=== PATIENT | male | born 1960 ===

== ENCOUNTER 2018-04-16 09:02 | Emergency (ER) | payer OTHER ==
[2018-04-16] MEDS ORDERED: NS 1,000 ML IV ONE (09:26)
--- NOTE | 2018-04-16 09:32 | EDPHY ---
H & P Stated Complaint: Bilat LQ pn x2mos. C/o constipation s bleeding. Time Seen by Provider: 04/16/18 09:20 HPI/ROS: CHIEF COMPLAINT: Lower abdominal pain x2 months HISTORY OF PRESENT ILLNESS: 57-year-old male with remote history of appendectomy, complaining of intermittent lower abdominal pain for the past 2 months worse in the past 3 days. He has to push his bowel movements out more significantly than previously. No melena or hematochezia. No pain with defecation. No nausea or vomiting. No back or flank pain. No trauma. No testicle pain. REVIEW OF SYSTEMS: 10 systems reviewed and negative with the exception of the elements mentioned in the history of present illness PAST MEDICAL & SURGICAL HISTORY: remote appendectomy history SOCIAL HISTORY: No drug use nonsmoker FAMILY HISTORY: Father secondary to history of colon cancer PHYSICAL EXAM (Prior to examination, patient consented to physical exam, hands were washed and my usual and customary physical exam procedures followed) 1) GENERAL: Well-developed, well-nourished, alert and oriented. Appears to be in no acute distress. Smiling 2) HEAD: Normocephalic, atraumatic 3) HEENT: Pupils equal, round, reactive to light bilaterally. Sclera anicteric. Nasopharynx, oropharynx, clear, no lesions. Moist mucous membranes. 4) NECK: Full range of motion, no meningeal signs. 5) LUNGS: Clear auscultation bilaterally, no wheezes, no rhonchi, no retractions. 6) HEART: Regular rate and rhythm, no murmur, no heave, no gallop. 7) ABDOMEN: No guarding, tender to palpation left lower quadrant , negative Christopher's, negative peritoneal sign, 8) MUSCULOSKELETAL: Moving all extremities, no focal areas of tenderness, no obvious trauma. No peripheral edema or discoloration. 9) BACK: No CVA tenderness 10) SKIN: No rash, no petechiae. 11) : Normal male external genitalia bilateral testicles nontender non high- riding, no mass, no inguinal mass or gross hernia. No scrotal abnormality. DIFFERENTIAL DIAGNOSIS: My differential diagnosis includes, but is not limited to, acute appendicitis, acute cholecystitis, bowel obstruction, acute pancreatitis, testicular torsion, gastritis and urinary tract infection. The patient understands that this diagnosis is provisional and can never be 100% accurate. This is a partial list of diagnoses considered. These considerations are based on history, physical exam, past history and reassessment. - Personal History Current Tetanus/Diphtheria Vaccine: Yes - Medical/Surgical History Hx Asthma: No Hx Chronic Respiratory Disease: No Hx Diabetes: No Hx Cardiac Disease: No Hx Renal Disease: No Hx Cirrhosis: No Hx Alcoholism: No Hx HIV/AIDS: No Hx Splenectomy or Spleen Trauma: No Other PMH: appendectomy - Social History Smoking Status: Never smoked Constitutional: Initial Vital Signs Temperature (C) 36.5 C 04/16/18 09:06 Heart Rate 81 04/16/18 09:06 Respiratory Rate 16 04/16/18 09:06 Blood Pressure 129/90 H 04/16/18 09:06 O2 Sat (%) 95 04/16/18 09:06 O2 Delivery Mode Room Air Allergies/Adverse Reactions: No Known Allergies Allergy (Verified 04/16/18 09:06) Home Medications: Medication Instructions Recorded NO HOME MEDS 10/15/09 Medical Decision Making - Diagnostics Imaging Results: Imaging Impressions Abdomen CT 04/16/18 09:46 Impression: 1. Mild uncomplicated diverticula of the descending and sigmoid colons without diverticulitis 2. No significant abnormality within the abdomen and pelvis. Findings discussed with Paulina De Dios PAC at 10:27 hour, 04/16/2018. ED Course/Re-evaluation: 9:31 a.m.: Patient complaining of left lower quadrant abdominal pain, will plan on i-STAT creatinine, CT of the abdomen /pelvis. Indications risks benefits discussed with patient he consents. I believe him to have decision- making capacity. Care of patient under supervision of secondary supervising physician Dr Torres with whom I discussed case. At this time doubt acute testicular pathology in absence of testicular pain or mass. 11:15 a.m. Re-evaluation with serial exams. Discussed the imaging results showing no definitive acute pathology, no diverticulitis no perforation, no mass. Plan will be discharge, follow up. He does note a family history of metastatic colorectal cancer and has regular evaluations with Cologuard which have been negative. At this time, doubt acute surgical abdominal pathology. Plan will be discharge home with my usual and customary abdominal precautions instructions. I did recommend follow up with Gastroenterology. He feels comfortable being discharged. - Data Points Laboratory Results: Laboratory Results 04/16/18 09:40 04/16/18 09:40 04/16/18 04/16/18 04/16/18 10:45 09:45 09:40 WBC RBC Hgb POC Hgb 15.6 gm/dL gm/dL (13.7-17.5) Hct POC Hct 46 % % (40-51) MCV MCH MCHC RDW Plt Count MPV Neut % (Auto) Lymph % (Auto) [place] % (Auto) Eos % (Auto) Baso % (Auto) Nucleat RBC Rel Count Absolute Neuts (auto) Absolute Lymphs (auto) Absolute Monos (auto) Absolute Eos (auto) Absolute Basos (auto) Absolute Nucleated RBC Immature Gran % Immature Gran # POC Sodium 140 mEq/L mEq/L (135-145) Sodium 135 mEq/L mEq/L (135-145) POC Potassium 4.2 mEq/L mEq/L (3.3-5.0) Potassium 4.5 mEq/L mEq/L (3.5-5.2) POC Chloride 104 mEq/L mEq/L (97-110) Chloride 107 mEq/L mEq/L (97-110) Carbon Dioxide 23 mEq/l mEq/l (22-31) POC Total CO2 23 mEq/L mEq/L (22-31) Anion Gap 5 mEq/L L mEq/L (6-14) POC BUN 16 mg/dL mg/dL (7-23) BUN 18 mg/dL mg/dL (7-23) Creatinine 0.9 mg/dL mg/dL (0.7-1.3) POC Creatinine 0.9 mg/dL mg/dL (0.7-1.3) Estimated GFR > 60 Glucose 102 mg/dL H mg/dL (70-100) POC Glucose 104 mg/dL H mg/dL (70-100) Calcium 9.1 mg/dL mg/dL (8.5-10.4) Total Bilirubin 0.9 mg/dL mg/dL (0.1-1.4) Conjugated Bilirubin 0.2 mg/dL mg/dL (0.0-0.5) Unconjugated Bilirubin 0.7 mg/dL mg/dL (0.0-1.1) AST 23 IU/L IU/L (17-59) ALT 40 IU/L IU/L (21-72) Alkaline Phosphatase 79 IU/L IU/L (38-126) Total Protein 7.0 g/dL g/dL (6.3-8.2) Albumin 4.0 g/dL g/dL (3.5-5.0) Lipase 79 IU/L IU/L (23-300) Urine Color YELLOW Urine Appearance CLEAR Urine pH 6.0 (5.0-7.5) Ur Specific [place] > 1.035 H (1.002-1.030) Urine Protein NEGATIVE (NEGATIVE) Urine Ketones NEGATIVE (NEGATIVE) Urine Blood NEGATIVE (NEGATIVE) Urine Nitrate NEGATIVE (NEGATIVE) Urine Bilirubin NEGATIVE (NEGATIVE) Urine Urobilinogen NEGATIVE EU EU (0.2-1.0) Ur Leukocyte Esterase NEGATIVE (NEGATIVE) Urine RBC NONE SEEN /hpf /hpf (0-3) Urine WBC 0-1 /hpf /hpf (0-3) Ur Epithelial Cells TRACE /lpf /lpf (NONE-1+) Urine Glucose NEGATIVE (NEGATIVE) 04/16/18 09:40 WBC 5.74 10^3/uL 10^3/uL (3.80-9.50) RBC 4.98 10^6/uL 10^6/uL (4.40-6.38) Hgb 15.5 g/dL g/dL (13.7-17.5) POC Hgb Hct 44.0 % % (40.0-51.0) POC Hct MCV 88.4 fL fL (81.5-99.8) MCH 31.1 pg pg (27.9-34.1) MCHC 35.2 g/dL g/dL (32.4-36.7) RDW 11.8 % % (11.5-15.2) Plt Count 191 10^3/uL 10^3/uL (150-400) MPV 10.4 fL fL (8.7-11.7) Neut % (Auto) 63.1 % % (39.3-74.2) Lymph % (Auto) 28.9 % % (15.0-45.0) [place] % (Auto) 7.3 % % (4.5-13.0) Eos % (Auto) 0.2 % L % (0.6-7.6) Baso % (Auto) 0.2 % L % (0.3-1.7) Nucleat RBC Rel Count 0.0 % % (0.0-0.2) Absolute Neuts (auto) 3.62 10^3/uL 10^3/uL (1.70-6.50) Absolute Lymphs (auto) 1.66 10^3/uL 10^3/uL (1.00-3.00) Absolute Monos (auto) 0.42 10^3/uL 10^3/uL (0.30-0.80) Absolute Eos (auto) 0.01 10^3/uL L 10^3/uL (0.03-0.40) Absolute Basos (auto) 0.01 10^3/uL L 10^3/uL (0.02-0.10) Absolute Nucleated RBC 0.00 10^3/uL 10^3/uL (0-0.01) Immature Gran % 0.3 % % (0.0-1.1) Immature Gran # 0.02 10^3/uL 10^3/uL (0.00-0.10) POC Sodium Sodium POC Potassium Potassium POC Chloride Chloride Carbon Dioxide POC Total CO2 Anion Gap POC BUN BUN Creatinine POC Creatinine Estimated GFR Glucose POC Glucose Calcium Total Bilirubin Conjugated Bilirubin Unconjugated Bilirubin AST ALT Alkaline Phosphatase Total Protein Albumin Lipase Urine Color Urine Appearance Urine pH Ur Specific [place] Urine Protein Urine Ketones Urine Blood Urine Nitrate Urine Bilirubin Urine Urobilinogen Ur Leukocyte Esterase Urine RBC Urine WBC Ur Epithelial Cells Urine Glucose Medications Given: Discontinued Medications Sodium Chloride (Ns) 1,000 mls @ 0 mls/hr IV EDNOW ONE; Wide Open PRN Reason: Protocol Stop: 04/16/18 09:27 Last Admin: 04/16/18 09:48 Dose: 1,000 mls Point of Care Test Results: Chemistry 04/16/18 09:45 POC Sodium 140 mEq/L mEq/L (135-145) POC Potassium 4.2 mEq/L mEq/L (3.3-5.0) POC Chloride 104 mEq/L mEq/L (97-110) POC Total CO2 23 mEq/L mEq/L (22-31) POC BUN 16 mg/dL mg/dL (7-23) POC Creatinine 0.9 mg/dL mg/dL (0.7-1.3) POC Glucose 104 mg/dL H mg/dL (70-100) ISTAT H&H 04/16/18 09:45 POC Hgb 15.6 gm/dL gm/dL (13.7-17.5) POC Hct 46 % % (40-51) Departure - Departure Disposition: Home, Routine, Self-Care Clinical Impression: Abdominal pain Qualifiers: Abdominal location: left lower quadrant Qualified Code(s): R10.32 - Left lower quadrant pain Condition: Good Instructions: Acute Abdominal Pain (ED) Additional Instructions: Seek immediate medical attention if you develop new or worsening symptoms, if you develop fevers, chills, inability to tolerate oral intake or any other symptoms that concerns you. Referrals: Pilar Currie MD [[facility] Primary Care Provider] - As per Instructions
[2018-04-16 09:51] LABS: PLATELET COUNT 191 10^3/uL (150-400)
[2018-04-16] MEDS ORDERED: IOHEXOL 300 mgI/ML (OMNIPAQUE) 150 ML BTL IV ONE (09:51)
[2018-04-16 11:10] VITALS: BP 131/90
== END 2018-04-16 11:17 | disposition home or self-care (01) ==
DX: R10.32 Left lower quadrant pain (principal); K57.30 Diverticulosis of large intestine without perforation or abscess without bleeding; E86.9 Volume depletion, unspecified; Z90.89 Acquired absence of other organs; Z80.0 Family history of malignant neoplasm of digestive organs
CPT/HCPCS: 82435-PO; 82565-PO; 82947-PO; 84132-PO; 84295-PO; 84520-PO; 85014-ER; Q9967